=== PATIENT | female | born 1975 | race Caucasian/White ===

== ENCOUNTER 2023-11-08 09:11 | Emergency (ER) | payer BC, OTHER ==
[~2023-11-08] VITALS: Ht 157.5 cm; Wt 72.6 kg
[~2023-11-08 09:11] MED LIST: ALPR0.2518 PO; FLUO-387 PO; PARO20TA13 PO
[2023-11-08 09:28] VITALS: BP 155/98; PULSE 71; RESP 18; TEMP 98; O2SAT 98
[2023-11-08 10:30] VITALS: O2SAT 98
[2023-11-08] MEDS ORDERED: KETOROLAC 60 MG/2 ML VIAL IM ONE (10:50)
[2023-11-08] MEDS ORDERED: IBUP-2213 PO (11:00)
== END 2023-11-08 11:05 | disposition home or self-care (01) ==
LOC: MED 09:11
DX: R07.89 Other chest pain (principal); Z90.710 Acquired absence of both cervix and uterus; Z98.890 Other specified postprocedural states; Z79.899 Other long term (current) drug therapy; Z88.5 Allergy status to narcotic agent
CPT/HCPCS: 71045; 93005; 99283